=== PATIENT | male | born 1970 | race African-American/Black ===

== ENCOUNTER 2016-07-14 21:38 | Emergency (ER) | payer OTHER ==
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
[2016-07-15] MEDS ORDERED: DIPH/PERTUSS(ACELL)/TETANUS VAC/PF 0.5 ML SYR (>=10YO) IM ONE (00:31)
[2016-07-15] MEDS ORDERED: IBUPROFEN 800 MG TABLET PO ONE (00:31)
[2016-07-15 01:18] VITALS: BP 146/95
== END 2016-07-15 00:50 | disposition home or self-care (01) ==
LOC: ER 21:38
DX: S80.12XA Contusion of left lower leg, initial encounter (principal); M79.1 Myalgia; V49.40XA Driver injured in collision with unspecified motor vehicles in traffic accident, initial encounter; Z23 Encounter for immunization
CPT/HCPCS: 99283; 90471; 90715; L0120